=== PATIENT | male | born 1985 | race Caucasian/White ===

== ENCOUNTER 2018-10-19 07:02 | Day surgery (SDC) | payer BC ==
[2018-10-14 10:47] LABS: CLARITY,URINE CLEAR (Clear); COLOR,URINE STRAW (Yellow); GLUCOSE, URINE NEGATIVE (Neg); KETONES,URINE NEGATIVE (Neg); LEUKOCYTE ESTERASE ,URINE NEGATIVE (Neg); NITRITES, URINE NEGATIVE (Neg); OCCULT BLOOD,URINE NEGATIVE (Neg); PROTEIN,URINE NEGATIVE (Neg); UROBILINOGEN,URINE 0.2 E.U/dL (0.2-1.0)
[2018-10-14 10:48] LABS: UA COLLECTION TYPE NON-SPECIFIED
[2018-10-14 10:49] LABS: BASOPHILS # (AUTO) 0.1 X10'3 (0-0.2); EOSINOPHILS # (AUTO) 0.1 X10'3 (0-0.9); LYMPHOCYTES # (AUTO) 1.5 X10'3 (1.1-4.8); MEAN CORPUSCULAR HEMOGLOBIN 26.8 PG (27.0-31.0); MONOCYTES # (AUTO) 0.5 X10'3 (0-0.9); PRE OP HEMOGLOBIN 15.1 g/dL (14.0-17.9)
[2018-10-14 10:51] LABS: BASOPHILS % (AUTO) 1.2 % (0-1); EOSINOPHILS % (AUTO) 1.7 % (0-6); LYMPHOCYTES % (AUTO) 23.7 % (21-51); MEAN CORPUSCULAR HGB CONC 33.6 g/dL (33.0-36.5); MEAN CORPUSCULAR VOLUME 79.6 FL (78-98); MEAN PLATELET VOLUME 10.3 FL (7.4-10.4); MONOCYTES % (AUTO) 8.6 % (2-12); NEUTROPHILS % (AUTO) 64.8 % (42-75); PRE OP HEMATOCRIT 44.9 % (42.0-52.0); PRE OP PLATELET COUNT 146 X10'3 (140-440); RED BLOOD COUNT 5.64 X10'6 (4.70-6.10)
[2018-10-14 11:15] LABS: ALBUMIN 4.6 G/DL (3.4-5.0); ALBUMIN/GLOBULIN RATIO 1.4 (1.1-1.5); ALKALINE PHOSPHATASE 44 IU/L (46-116); BLOOD UREA NITROGEN 11 MG/DL (7-18); BUN/CREATININE RATIO 12.6 (5.4-32.0); CALCIUM 8.8 MG/DL (8.5-10.1); CHLORIDE 104 MMOL/L (99-107); CREATININE 0.87 MG/DL (0.60-1.10); PRE OP ALT 16 U/L (30-65); PRE OP ANION GAP 9 (8-16); PRE OP AST 10 U/L (10-37); PRE OP BILIRUB, TOTAL 0.9 MG/DL (0.0-1.0); PRE OP GLUCOSE 94 MG/DL (70-104); PRE OP POTASSIUM 3.8 MMOL/L (3.4-5.1); PRE OP SODIUM 142 MMOL/L (135-145); TOTAL CARBON DIOXIDE 28.8 MMOL/L (24-32); TOTAL PROTEIN 7.9 G/DL (6.4-8.2); eGFR > 90 ML/MIN
[2018-10-14 11:30] LABS: GIANT PLATELET FEW; LARGE PLATELETS FEW; PLATELET ESTIMATE NORMAL
[2018-10-19] VITALS (8 sets, daily range): BP systolic 105–123; BP diastolic 63–80
[~2018-10-19] VITALS: Ht 170.2 cm; Wt 61.8 kg
[~2018-10-19 07:02] MED LIST: NO HOME MEDS
[2018-10-19] MEDS ORDERED: albuterol 2.5 MG/3 ML nebule NEB ONE (08:00)
[2018-10-19] MEDS ORDERED: cefazolin/dext.iso 2gm/50ml 50 ML IV ONE (08:00)
[2018-10-19] MEDS ORDERED: ringers solution, lacted 1,000 ML IV SCH ×2 (08:00→08:59)
[2018-10-19] MEDS ORDERED: famotidine 20mg tablet PO ONE (08:00)
[2018-10-19] MEDS ORDERED: meperidine/PF 25mg/ml syringe IV PRN ×3 (09:00)
[2018-10-19] MEDS ORDERED: morphine 4 MG/ML inj SYRINge IV PRN ×2 (09:00)
[2018-10-19] MEDS ORDERED: ondansetron/PF 4mg/2ml inj IV PRN (09:00)
[2018-10-19] MEDS ORDERED: proCHLORperazine 10 MG/2 ml inj IV PRN (09:00)
[2018-10-19] MEDS ORDERED: ceFAZolin 1000mg inj ONE (09:49)
[2018-10-19] MEDS ORDERED: BUPIVAcaine/PF 2.5 mg/ml (0.25%) 30ml vial ONE (09:49)
[2018-10-19] MEDS ORDERED: dexamethasone sod phosphate 10mg/ml inj ONE (10:10)
[2018-10-19] MEDS ORDERED: sevoflurane 250ml liquid IH ONE (10:10)
[2018-10-19] MEDS ORDERED: ondansetron/PF 4mg/2ml inj ONE (10:10)
[2018-10-19] MEDS ORDERED: midazolam 2 mg/2 ml injection ONE (10:10)
[2018-10-19] MEDS ORDERED: fentaNYL /PF 50mcg/ml 5ml ampule ONE (10:11)
[2018-10-19] MEDS ORDERED: propofol inj 20 ML IV ONE (10:15)
[2018-10-19] MEDS ORDERED: rocuronium 10mg/ml inj IV ONE (10:15)
[2018-10-19] MEDS ORDERED: LIDOcaine 2% (20mg/ml) 5ml vial ONE (10:15)
[2018-10-19] MEDS ORDERED: ketorolac trometh. 30mg/ml inj. ONE (10:21)
[2018-10-19] MEDS ORDERED: glycopyrrolate 0.2mg/ml inj ONE (11:21)
[2018-10-19] MEDS ORDERED: neostigmine methylsulfate 1 MG/ML 10ml vial ONE (11:21)
--- NOTE | 2018-10-19 11:35 | NUR ---
Received from OR via BED , accompanied by Anesthesiologist DR SHARP and report given by Anesthesiolgist. PATIENT WAKING UP, DENIES PAIN, V/S WNL, NEUROVASCULAR CHECKLS INTACT, 20G PIV TO RUE, SCD ON,
--- NOTE | 2018-10-19 12:25 | NUR ---
PATIENT A&OX4, DENIES PAIN, V/S WNL, CSM INTACT, 20G PIV TO RUE D/C, SCD OFF, BANDAIDS TO ABDOMEN CDI. I HAVE REVIEWED D/C INSTRUCTIONS WITH PATIENT AND THEY HAVE VERBALIZED UNDERSTANDING. PATIENT HAS VOIDED 200CC. PATIENT D/C HOME WITH ALL BELONGINGS AND FAMILY GAVE TRANSPORT HOME.
== END 2018-10-19 12:25 | disposition home or self-care (01) ==
LOC: PAS 07:02
PROVIDERS: ATTEND Surgery
DX: K40.20 Bilateral inguinal hernia, without obstruction or gangrene, not specified as recurrent (principal); J45.909 Unspecified asthma, uncomplicated; F41.9 Anxiety disorder, unspecified; F32.9 Major depressive disorder, single episode, unspecified; F17.210 Nicotine dependence, cigarettes, uncomplicated; Z79.899 Other long term (current) drug therapy
CPT/HCPCS: 36415; 49650; 80053; 81003; 82948; 85025; C1781; J0690; J1100; J1885; J2001; J2175; J2250; J2405; J2704; J2710; J3010; J3490; J7120; A4215; A4314; A4618